=== PATIENT | female | born 1950 | race Caucasian/White ===

== ENCOUNTER 2019-01-30 13:58 | Inpatient (IN) | payer MEDICARE, OTHER | END 2019-02-01 11:38 | disposition home or self-care (01) | LOC: ER 13:58 → ED HOLD 16:52 → SUR 3N 21:03 | DX: J45.901 Unspecified asthma with (acute) exacerbation (principal); I50.22 Chronic systolic (congestive) heart failure; I42.9 Cardiomyopathy, unspecified; J20.9 Acute bronchitis, unspecified; J32.9 Chronic sinusitis, unspecified; R09.82 Postnasal drip; E11.9 Type 2 diabetes mellitus without complications; I11.0 Hypertensive heart disease with heart failure ==

== ENCOUNTER 2019-05-17 07:18 | Day surgery (SDC) | payer MEDICARE, OTHER ==
[2019-05-16 17:09] LABS: BASOPHILS # (AUTO) 0.1 X10'3 (0-0.2); EOSINOPHILS # (AUTO) 0.4 X10'3 (0-0.9); EOSINOPHILS % (AUTO) 4.7 % (0-6); HEMATOCRIT 42.9 % (35.0-45.0); HEMOGLOBIN 14.1 g/dl (12.0-16.0); LYMPHOCYTES # (AUTO) 1.8 X10'3 (1.1-4.8); LYMPHOCYTES % (AUTO) 21.3 % (21-51); MEAN CORPUSCULAR HEMOGLOBIN 28.2 PG (27.0-31.0); MEAN CORPUSCULAR HGB CONC 32.9 g/dL (33.0-36.5); MEAN CORPUSCULAR VOLUME 85.6 FL (78-98); MEAN PLATELET VOLUME 9.3 FL (7.4-10.4); MONOCYTES # (AUTO) 0.7 X10'3 (0-0.9); MONOCYTES % (AUTO) 8.1 % (2-12); NEUTROPHILS # (AUTO) 5.6 X10'3 (1.8-7.7); NEUTROPHILS % (AUTO) 64.9 % (42-75); PLATELET COUNT 273 X10'3 (140-440); RED BLOOD COUNT 5.01 X10'6 (4.20-5.60); RED CELL DISTRIBUTION WIDTH 15.3 % (11.5-14.5); WHITE BLOOD COUNT 8.6 X10'3 (4.5-11.0)
[2019-05-16 17:14] LABS: ALBUMIN 3.8 G/DL (3.4-5.0); ANION GAP 8 (8-16); BLOOD UREA NITROGEN 26 MG/DL (7-18); BUN/CREATININE RATIO 21.3 (6.6-38.0); CALCIUM 7.6 MG/DL (8.5-10.1); CHLORIDE 99 MMOL/L (99-107); CREATININE 1.22 MG/DL (0.40-0.90); GLUCOSE 306 MG/DL (70-104); POTASSIUM 4.1 MMOL/L (3.5-5.1); SODIUM 137 MMOL/L (135-145); TOTAL CARBON DIOXIDE 30.2 MMOL/L (24-32); eGFR 44 ML/MIN
[2019-05-16 17:33] LABS: PARTIAL THROMBOPLASTIN TIME 26 SECONDS (22-32)
[2019-05-17] VITALS (11 sets, daily range): BP systolic 109–140; BP diastolic 51–85
[~2019-05-17] VITALS: Ht 179.1 cm; Wt 128.8 kg
[~2019-05-17 07:18] MED LIST: ALBU18HF2 INH; ASPI-1071 PO; ATOR20TA66 PO; CARV6.253 PO; CLOP75TA15 PO; FLUT16SP18 NS; FURO-149 PO; LANTUS SQ; LEVO150T61 PO; LYR75C PO; METF-437 PO; MULT-38 PO; NITR0.4T51 SL; SACU1TAB PO; TRAM50TA2 PO; VENL75CA55 PO
[2019-05-17] MEDS ORDERED: normal saline 1000ml 1,000 ML IV SCH ×2 (07:45→13:55)
[2019-05-17] MEDS ORDERED: cefazolin/dext.iso 2gm/100ml 100 ML IV ONE ×2 (07:50→09:24)
[2019-05-17] MEDS ORDERED: CARV25TA2 PO (08:42)
[2019-05-17] MEDS ORDERED: GLYB5TAB7 PO (08:42)
[2019-05-17] MEDS ORDERED: INSU100I31 SQ (08:42)
[2019-05-17] MEDS ORDERED: LIDOcaine 1% w/EPI 1:100,000 30ml vial (MDV) ONE ×2 (09:23→10:46)
[2019-05-17] MEDS ORDERED: fentaNYL/PF 50MCG/1 ML 2ML syringe ONE ×3 (09:23→12:16)
[2019-05-17] MEDS ORDERED: ceFAZolin 1000mg inj ONE (09:23)
[2019-05-17] MEDS ORDERED: iohexol 350 MG/ML 50ML vial IV ONE ×2 (09:23→10:32)
[2019-05-17] MEDS ORDERED: midazolam 2 mg/2 ml injection ONE ×3 (09:23→11:52)
[2019-05-17] MEDS ORDERED: mag hydrox/Alum hydrox/simeth 30ml oral suspension PO PRN (13:55)
[2019-05-17] MEDS ORDERED: HYDROcodone/acetaminophen 5mg/325mg tablet PO PRN (13:55)
[2019-05-17] MEDS ORDERED: HYDROcodone/acetaminophen 10/325mg tab PO PRN (13:55)
[2019-05-17] MEDS ORDERED: pantoprazole 40mg Tablet.DR PO SCH ×2 (14:24→20:00)
[2019-05-17] MEDS ORDERED: vancomycin/NS 1 GM ADD-VANTAGE 250 ML IV ONE (14:30)
--- NOTE | 2019-05-17 16:47 | NUR ---
Problems reprioritized. Patient report given, questions answered & plan of care reviewed with RYAN Montesinos.
== END 2019-05-17 18:15 | disposition home or self-care (01) ==
LOC: SSTAY O 07:18
PROVIDERS: ATTEND Internal Medicine Cardiovascular Disease
DX: I42.0 Dilated cardiomyopathy (principal); E11.9 Type 2 diabetes mellitus without complications; I10 Essential (primary) hypertension; I25.10 Atherosclerotic heart disease of native coronary artery without angina pectoris; E78.5 Hyperlipidemia, unspecified; Z95.1 Presence of aortocoronary bypass graft; I45.89 Other specified conduction disorders
CPT/HCPCS: 33225; 33249; 36415; 71046; 80048; 82948; 85025; 85610; 85730; 93005; 99152; 99153; C1769; C1777; C1882; C1887; C1894; C1895; C1900; J0690; J2250; J3010; J3370; J3490; J7030; Q9967; A4565; A4620; A6449

== ENCOUNTER 2020-04-23 19:36 | Emergency (ER) | payer MEDICARE, OTHER ==
[~2020-04-23] VITALS: Ht 177.8 cm; Wt 113.6 kg
[~2020-04-23 19:36] MED LIST changes: +ALBU8.5H8 INH; +BUDE10.22 INH; +CARV25TA2 PO; -CARV6.253 PO; -FLUT16SP18 NS; +GLIM4TAB7 PO; +INSU100I31 SQ; +IPRA3AMP31 IH; -LANTUS SQ; +LIDOcaine 1% W/epiNEPHrine 1:100,000 20ml vial ONE; +SPIR25TA PO; -VENL75CA55 PO; +VENL75TA4 PO
[2020-04-23 19:46] VITALS: BP 101/59
[2020-04-23] MEDS ORDERED: LIDOcaine 1% W/epiNEPHrine 1:200,000 10ml vial IJ ONE (19:50)
[2020-04-23] MEDS ORDERED: DOXY100C76 PO (20:23)
== END 2020-04-23 20:42 | disposition home or self-care (01) ==
LOC: ER 19:37
DX: N76.4 Abscess of vulva (principal); R10.2 Pelvic and perineal pain; I25.10 Atherosclerotic heart disease of native coronary artery without angina pectoris; I11.0 Hypertensive heart disease with heart failure; I50.9 Heart failure, unspecified; E11.9 Type 2 diabetes mellitus without complications; F41.9 Anxiety disorder, unspecified; Z98.890 Other specified postprocedural states; Z72.89 Other problems related to lifestyle; Z88.2 Allergy status to sulfonamides; Z88.8 Allergy status to other drugs, medicaments and biological substances; Z91.040 Latex allergy status; Z79.82 Long term (current) use of aspirin; Z79.2 Long term (current) use of antibiotics; Z79.4 Long term (current) use of insulin; Z79.01 Long term (current) use of anticoagulants; Z79.899 Other long term (current) drug therapy
CPT/HCPCS: 10060; 56405; 99283; 99284

== ENCOUNTER 2021-04-29 13:47 | Outpatient (CLI) | payer MEDICARE ==
[~2021-04-29 13:47] MED LIST changes: -LIDOcaine 1% W/epiNEPHrine 1:100,000 20ml vial ONE
== END 2021-04-29 23:59 | disposition home or self-care (01) ==
LOC: CARD DIAG 13:47
PROVIDERS: ATTEND Internal Medicine Cardiovascular Disease
DX: I08.0 Rheumatic disorders of both mitral and aortic valves (principal)
CPT/HCPCS: 93306

== ENCOUNTER → 2022-02-12 | Day surgery (SDC) | payer MEDICARE ==
[2022-02-05 15:24] LABS: BASOPHILS # (AUTO) 0.1 X10'3 (0-0.2); BASOPHILS % (AUTO) 1.2 % (0-1); EOSINOPHILS # (AUTO) 0.3 X10'3 (0-0.9); EOSINOPHILS % (AUTO) 3.2 % (0-6); LYMPHOCYTES # (AUTO) 1.8 X10'3 (1.1-4.8); MEAN CORPUSCULAR HEMOGLOBIN 28.5 PG (27.0-31.0); MEAN CORPUSCULAR HGB CONC 32.2 g/dL (33.0-36.5); MEAN CORPUSCULAR VOLUME 88.4 FL (78-98); MEAN PLATELET VOLUME 10.2 FL (7.4-10.4); MONOCYTES # (AUTO) 0.7 X10'3 (0-0.9); MONOCYTES % (AUTO) 8.1 % (2-12); NEUTROPHILS # (AUTO) 5.8 X10'3 (1.8-7.7); NEUTROPHILS % (AUTO) 66.5 % (42-75); PRE OP HEMATOCRIT 37.8 % (35.0-45.0); PRE OP HEMOGLOBIN 12.2 g/dL (12.0-16.0); PRE OP PLATELET COUNT 264 X10'3 (140-440); RED BLOOD COUNT 4.27 X10'6 (4.20-5.60); RED CELL DISTRIBUTION WIDTH 14.1 % (11.5-14.5)
[2022-02-05 15:32] LABS: PRE OP INR 1.1 INR; PRE OP PROTIME 11.1 SECONDS (9.0-12.0)
[2022-02-05 15:37] LABS: ALBUMIN 3.6 G/DL (3.4-5.0); ALBUMIN/GLOBULIN RATIO 0.9 (1.1-1.5); ALKALINE PHOSPHATASE 105 IU/L (46-116); BLOOD UREA NITROGEN 20 MG/DL (7-18); BUN/CREATININE RATIO 24.7 (6.6-38.0); CHLORIDE 101 MMOL/L (99-107); CREATININE 0.81 MG/DL (0.40-0.90); PRE OP ALT 20 U/L (30-65); PRE OP ANION GAP 9 (8-16); PRE OP AST 10 U/L (10-37); PRE OP BILIRUB, TOTAL 0.3 MG/DL (0.0-1.0); PRE OP GLUCOSE 159 MG/DL (70-104); PRE OP POTASSIUM 4.4 MMOL/L (3.4-5.1); PRE OP SODIUM 139 MMOL/L (135-145); TOTAL CARBON DIOXIDE 28.9 MMOL/L (24-32); TOTAL PROTEIN 7.8 G/DL (6.4-8.2); eGFR 70 ML/MIN
[~2022-02-12] VITALS: Ht 177.8 cm; Wt 126.0 kg
[~2022-02-12] MED LIST changes: +ALBU2.5V10; -ALBU8.5H8 INH; -ASPI-1071 PO; -BUDE10.22 INH; +DOCUMENT DATE & TIME OF BETA-BLOCKER PO ONE; +FENTANYL CITRATE/PF 50 MCG/1 ML VIAL ONE; +GABAPENTIN PO; +INSU100I45; -IPRA3AMP31 IH; -LYR75C PO; -SPIR25TA PO; +acetaminophen 1,000mg/100ml IV 100 ML IV PRN; +albuterol 2.5 MG/3 ML nebule NEB PRN; +ceFOXitin 2GM-NS 100mL ADDvant 100 ML IV ONE; +famotidine 20mg tablet PO ONE; +insulin regular, human 10 units/0.1 ml syringe SQ ONE; +ketorolac tromethamine 15mg/ml inj. IV ONE; +meperidine/PF 25mg/ml syringe IV PRN; +midazolam 1 mg/ML 2ml injection ONE; +morphine 2 MG/ML inj. syringe IV PRN; +morphine 4 MG/ML inj SYRINge IV PRN; +ondansetron/PF 4mg/2ml inj IV PRN; +propofol inj 20 ML IV ONE; +ringers solution, lacted 1,000 ML IV SCH
[2022-02-12 12:15] VITALS: BP 118/72
--- NOTE | 2022-02-12 13:30 | NUR ---
PT BS 227. PT DID NOT TAKE HS LANTUS LAST NIGHT. NOTIFIED DR STEPHEN ORDER FOR REGULAR INSULIN 10UNITS SQ AND RECHECK ACCU CHECK 30 MIN AFTER
[2022-02-12 14:34] LABS: CLARITY,URINE CLEAR (Clear); COLOR,URINE YELLOW (Yellow); GLUCOSE, URINE NEGATIVE (Neg); KETONES,URINE NEGATIVE (Neg); LEUKOCYTE ESTERASE ,URINE NEGATIVE (Neg); NITRITES, URINE NEGATIVE (Neg); OCCULT BLOOD,URINE NEGATIVE (Neg); PROTEIN,URINE NEGATIVE (Neg); UROBILINOGEN,URINE 0.2 E.U/dL (0.2-1.0)
[2022-02-12 14:45] LABS: UA COLLECTION TYPE CLN CATCH MIDSTREAM
[2022-02-12 15:59] VITALS: BP 108/57
--- NOTE | 2022-02-12 15:59 | NUR ---
Received from OR via IRON , accompanied by Anesthesiologist MARANDA and report given by Anesthesiolgist. PATIENT WITH ELIER PAD IN PLACE. VSS. PATIENT WITH 10L MASK ON AND PATIENT DENIES PAIN. VSS. Addendum: 02/12/22 at 1604 by Brad Perez RN RN Amended: Links added.
[2022-02-12 16:10] VITALS: BP 106/53
[2022-02-12 16:20] VITALS: BP 113/51
[2022-02-12 16:30] VITALS: BP 90/51
[2022-02-12 16:40] VITALS: BP 101/61
--- NOTE | 2022-02-12 16:49 | NUR ---
ALL DISCHARGE CRITERIA HAS BEEN MET. VSS, PAIN AT A TOLERABLE LEVEL, VOIDING AND ABLE TO SAFELY AMBULATE AND TRANSFER SELF. IV TAKEN OUT WITHOUT ANY COMPLICATIONS. ALL DISCHARGE INSTRUCTIONS COVERED WITH PATIENT AND ALL QUESTIONS ANSWERED. PATIENT TAKEN OUT VIA WHEELCHAIR TO PERSONAL VEHICLE WHERE FAMILY/FRIEND DROVE PATIENT HOME. SPOUSE ALEXA DROVE PATIENT HOME. Addendum: 02/12/22 at 1650 by Brad Perez RN, RN Amended: Links added.
== END | disposition home or self-care (01) ==
LOC: PAS 12:05
PROVIDERS: ATTEND Obstetrics & Gynecology Obstetrics
DX: N95.0 Postmenopausal bleeding (principal); N84.0 Polyp of corpus uteri; M19.90 Unspecified osteoarthritis, unspecified site; J44.9 Chronic obstructive pulmonary disease, unspecified; E11.9 Type 2 diabetes mellitus without complications; G47.30 Sleep apnea, unspecified; I10 Essential (primary) hypertension; E66.9 Obesity, unspecified; Z68.41 Body mass index [BMI] 40.0-44.9, adult; Z91.040 Latex allergy status; Z88.2 Allergy status to sulfonamides; Z85.828 Personal history of other malignant neoplasm of skin; Z98.890 Other specified postprocedural states; Z98.84 Bariatric surgery status; Z79.899 Other long term (current) drug therapy; Z79.01 Long term (current) use of anticoagulants; Z79.4 Long term (current) use of insulin; Z87.891 Personal history of nicotine dependence; Z20.822 Contact with and (suspected) exposure to COVID-19; Z80.3 Family history of malignant neoplasm of breast; Z80.41 Family history of malignant neoplasm of ovary
CPT/HCPCS: 36415; 58558; 71046; 80053; 81003; 82948; 85025; 85610; 85730; 86885; 86900; 86901; 93005; J0694; J1815; J2250; J2704; J3010; J7030; U0003; U0005; Z7506; 88305; A4355; A4618; A6258; A7000; J7120

== ENCOUNTER 2023-10-11 16:13 | Emergency (ER) | payer MEDICARE ==
[~2023-10-11] VITALS: Ht 177.8 cm; Wt 117.3 kg
[~2023-10-11 16:13] MED LIST changes: -DOCUMENT DATE & TIME OF BETA-BLOCKER PO ONE; -FENTANYL CITRATE/PF 50 MCG/1 ML VIAL ONE; -INSU100I45; +INSU100I61; -acetaminophen 1,000mg/100ml IV 100 ML IV PRN; -albuterol 2.5 MG/3 ML nebule NEB PRN; -ceFOXitin 2GM-NS 100mL ADDvant 100 ML IV ONE; -famotidine 20mg tablet PO ONE; -insulin regular, human 10 units/0.1 ml syringe SQ ONE; -ketorolac tromethamine 15mg/ml inj. IV ONE; -meperidine/PF 25mg/ml syringe IV PRN; -midazolam 1 mg/ML 2ml injection ONE; -morphine 2 MG/ML inj. syringe IV PRN; -morphine 4 MG/ML inj SYRINge IV PRN; -ondansetron/PF 4mg/2ml inj IV PRN; -propofol inj 20 ML IV ONE; -ringers solution, lacted 1,000 ML IV SCH
[2023-10-11 16:37] VITALS: BP 100/73; PULSE 90; TEMP 97.7; O2SAT 96
[2023-10-11 16:46] LABS: ALANINE AMINOTRANSFERASE 16 U/L (12-78); ALBUMIN 3.7 G/DL (3.4-5.0); ALKALINE PHOSPHATASE 120 IU/L (46-116); ANION GAP 10 (8-16); ASPARTATE AMINO TRANSFERASE 11 U/L (10-37); BILIRUBIN,TOTAL 0.3 MG/DL (0.1-1.0); BLOOD UREA NITROGEN 24 MG/DL (7-18); BUN/CREATININE RATIO 18.9 (10.0-20.0); CHLORIDE 97 MMOL/L (99-107); CREATININE 1.27 MG/DL (0.40-0.90); GLUCOSE 175 MG/DL (70-104); POTASSIUM 4.5 MMOL/L (3.5-5.1); SODIUM 134 MMOL/L (135-145); TOTAL CARBON DIOXIDE 27.4 MMOL/L (24-32); TOTAL PROTEIN 7.3 G/DL (6.4-8.2); eCRCL 42 ML/MIN; eGFR 41 ML/MIN
[2023-10-11 16:53] LABS: BASOPHILS # (AUTO) 0.1 X10'3 (0-0.2); EOSINOPHILS # (AUTO) 0.4 X10'3 (0-0.9); EOSINOPHILS % (AUTO) 3.9 % (0-6); HEMOGLOBIN 13.4 g/dl (12.0-16.0); LYMPHOCYTES # (AUTO) 2.7 X10'3 (1.1-4.8); LYMPHOCYTES % (AUTO) 23.4 % (21-51); MEAN CORPUSCULAR HEMOGLOBIN 29.1 PG (27.0-31.0); MEAN CORPUSCULAR HGB CONC 32.6 g/dL (33.0-36.5); MEAN CORPUSCULAR VOLUME 89.2 FL (78-98); MEAN PLATELET VOLUME 9.8 FL (7.4-10.4); MONOCYTES # (AUTO) 0.9 X10'3 (0-0.9); MONOCYTES % (AUTO) 7.9 % (2-12); NEUTROPHILS # (AUTO) 7.3 X10'3 (1.8-7.7); NEUTROPHILS % (AUTO) 63.8 % (42-75); PLATELET COUNT 278 X10'3 (140-440); RED BLOOD COUNT 4.59 X10'6 (4.20-5.60); RED CELL DISTRIBUTION WIDTH 14.2 % (11.5-14.5); WHITE BLOOD COUNT 11.4 X10'3 (4.5-11.0)
[2023-10-11 16:54] LABS: PRO BRAIN NATRIURETIC PEPTIDE 622 PG/ML (0-125)
[2023-10-11 21:30] VITALS: RESP 16
== END 2023-10-11 21:44 | disposition home or self-care (01) ==
LOC: ER 16:14
DX: R07.9 Chest pain, unspecified (principal); I11.0 Hypertensive heart disease with heart failure; E11.9 Type 2 diabetes mellitus without complications; F41.9 Anxiety disorder, unspecified; Z91.040 Latex allergy status; Z88.8 Allergy status to other drugs, medicaments and biological substances
CPT/HCPCS: 36415; 71045; 80053; 83880; 84484; 85025; 93005; 99285

== ENCOUNTER 2024-07-19 07:23 | Day surgery (SDC) | payer MEDICARE ==
[2024-07-18 15:44] LABS: BASOPHILS # (AUTO) 0.1 X10'3 (0-0.2); BASOPHILS % (AUTO) 0.8 % (0-1); EOSINOPHILS # (AUTO) 0.3 X10'3 (0-0.9); EOSINOPHILS % (AUTO) 3.1 % (0-6); HEMATOCRIT 42.4 % (35.0-45.0); HEMOGLOBIN 13.7 g/dl (12.0-16.0); LYMPHOCYTES # (AUTO) 1.8 X10'3 (1.1-4.8); MEAN CORPUSCULAR HEMOGLOBIN 28.5 PG (27.0-31.0); MEAN CORPUSCULAR HGB CONC 32.4 g/dL (33.0-36.5); MEAN CORPUSCULAR VOLUME 88.1 FL (78-98); MEAN PLATELET VOLUME 10.2 FL (7.4-10.4); MONOCYTES # (AUTO) 0.7 X10'3 (0-0.9); MONOCYTES % (AUTO) 7.1 % (2-12); NEUTROPHILS # (AUTO) 6.3 X10'3 (1.8-7.7); PLATELET COUNT 240 X10'3 (140-440); RED BLOOD COUNT 4.81 X10'6 (4.20-5.60); RED CELL DISTRIBUTION WIDTH 15.7 % (11.5-14.5); WHITE BLOOD COUNT 9.2 X10'3 (4.5-11.0)
[2024-07-18 15:48] LABS: ALBUMIN 3.7 G/DL (3.4-5.0); ANION GAP 13 (8-16); BLOOD UREA NITROGEN 26 MG/DL (7-18); BUN/CREATININE RATIO 21.5 (10.0-20.0); CALCIUM 8.2 MG/DL (8.5-10.1); CHLORIDE 101 MMOL/L (99-107); CREATININE 1.21 MG/DL (0.40-0.90); GLUCOSE 193 MG/DL (70-104); POTASSIUM 4.6 MMOL/L (3.5-5.1); SODIUM 140 MMOL/L (135-145); TOTAL CARBON DIOXIDE 26.1 MMOL/L (24-32); eGFR 43 ML/MIN
[2024-07-18 15:52] LABS: APTT 24 SECONDS (22-32); PROTHROMBIN TIME 10.9 SECONDS (9.0-12.0)
[2024-07-19] VITALS (11 sets, daily range): BP systolic 108–145; BP diastolic 49–78; PULSE 63–75; RESP 10–18; TEMP 96.8; O2SAT 91–95
[~2024-07-19] VITALS: Ht 177.8 cm; Wt 122.2 kg
[2024-07-19] MEDS ORDERED: ceFAZolin 3,000 MG in NS 100ml IVPB x1 dose post-op IV ONE (07:45)
[2024-07-19] MEDS ORDERED: LEVO125T8 PO (08:10)
[2024-07-19] MEDS ORDERED: SPIR25TA5 PO (08:10)
[2024-07-19] MEDS ORDERED: LOSA25TA41 PO (08:10)
[2024-07-19] MEDS ORDERED: GABA300T28 PO (08:10)
[2024-07-19] MEDS ORDERED: BUDE10.2 INH (08:10)
[2024-07-19] MEDS ORDERED: EMPA10TA PO (08:10)
[2024-07-19] MEDS ORDERED: OXYB10TA30 PO (08:10)
[2024-07-19] MEDS ORDERED: VENL37.589 PO (08:10)
[2024-07-19] MEDS ORDERED: fentaNYL/PF 50MCG/1 ML 2ML syringe ONE (08:17)
[2024-07-19] MEDS ORDERED: ceFAZolin 1000mg inj ONE (08:17)
[2024-07-19] MEDS ORDERED: midazolam 1 mg/ML 2ml injection ONE (08:17)
[2024-07-19] MEDS ORDERED: LIDOcaine 1% W/epiNEPHrine 1:100,000 20ml vial ONE (08:17)
[2024-07-19] MEDS ORDERED: diphenhydrAMINE 50 mg/ml inj ONE (09:44)
[2024-07-19] MEDS ORDERED: HYDROmorphone 1 mg/ml syringe ONE (10:02)
[2024-07-19] MEDS ORDERED: CEPH-585 PO (11:16)
[2024-07-19] MEDS: normal saline 1000ml 1,000 ML IV SCH (11:43)
[2024-07-19] MEDS: linezolid 600mg/300ml PREMIX 300 ML IV ONE (12:16)
[2024-07-19] MEDS: acetaminophen 325mg tablet PO PRN ×2 (13:42→13:48)
[2024-07-20] MEDS ORDERED: TICA90TA2 PO (07:18)
== END 2024-07-19 15:55 | disposition home or self-care (01) ==
LOC: SSTAY O 07:23
PROVIDERS: ATTEND Internal Medicine Cardiovascular Disease
DX: T82.111A Breakdown (mechanical) of cardiac pulse generator (battery), initial encounter (principal); I25.10 Atherosclerotic heart disease of native coronary artery without angina pectoris; I11.0 Hypertensive heart disease with heart failure; I50.22 Chronic systolic (congestive) heart failure; E11.9 Type 2 diabetes mellitus without complications; E66.9 Obesity, unspecified; E89.0 Postprocedural hypothyroidism; I48.0 Paroxysmal atrial fibrillation; E78.5 Hyperlipidemia, unspecified; I42.0 Dilated cardiomyopathy; J45.909 Unspecified asthma, uncomplicated; G47.30 Sleep apnea, unspecified; Z79.84 Long term (current) use of oral hypoglycemic drugs; Z79.02 Long term (current) use of antithrombotics/antiplatelets; Z79.899 Other long term (current) drug therapy; Z95.5 Presence of coronary angioplasty implant and graft; Z98.890 Other specified postprocedural states; Z68.38 Body mass index [BMI] 38.0-38.9, adult; Z88.1 Allergy status to other antibiotic agents; Z91.040 Latex allergy status; Z88.8 Allergy status to other drugs, medicaments and biological substances; Z80.3 Family history of malignant neoplasm of breast; Z80.41 Family history of malignant neoplasm of ovary; Y71.2 Prosthetic and other implants, materials and accessory cardiovascular devices associated with adverse incidents; Y92.89 Other specified places as the place of occurrence of the external cause
CPT/HCPCS: 33264; 36415; 80048; 85025; 85610; 85730; 93005; 99152; 99153; A6258; A6402; C1882; J0690; J1170; J1200; J2020; J2250; J3010; J3490; J7030; Z7610; 33229; A6449